=== PATIENT | female | born 1970 | race Caucasian/White ===

== ENCOUNTER 2023-09-02 08:48 | Outpatient (CLI) | payer OTHER, SELFPAY ==
--- NOTE | ~2023-09-02 | CT_ITS ---
EXAMINATION: CT orbit BI wo con DATE: 09/02/2023 09:20 INDICATION: Orbital myositis. Right eye pain. TECHNIQUE: Computed tomography (CT) of the orbits was performed without intravenous contrast. Automat ed exposure control and iterative reconstruction technique were employed. The dose-length product was 196.21 mGy-cm. COMPARISON: Head CT 05/18/2019 FINDINGS: The ocular globes are normal. The optic nerves are normal. The extraocular muscles are norm al. There is no abnormal mass. There is mild mucosal thickening in the paranasal sinuses. The mastoid air cells are normal. There is cerumen in the external auditory canals. IMPRESSION: 1. Normal orbits. Reviewed, dictated and finalized at location A. IMPRESSION: 1. Normal orbits.
== END 2023-09-02 08:49 | disposition home or self-care (01) ==
PROVIDERS: PCP Family Medicine Adolescent Medicine; Visit Provider Ophthalmology
DX: H05.123 Orbital myositis, bilateral (principal)
CPT/HCPCS: 70480

== ENCOUNTER 2024-02-29 10:21 | Outpatient (CLI) | payer OTHER, SELFPAY ==
--- NOTE | 2024-02-29 11:00 | NEURO_ITS ---
Impression: # Complains of numbness of right hand, fingers, wrist and forearm. Not diabetic. # No Carpal Tunnel Syndrome. # No ulnar neuropathy. # Normal needle/EMG exam. Nerve Conduction Studies Anti Sensory Summary Table Stim Site NR Peak (ms) P-T Amp (?V) Site1 Site2 Delta-P (ms) Dist (cm) Adalid (m/s) Right Median Anti Sensory (2-3nd Digit) Wrist 2.6 74.7 Wrist 2-3nd Digit 2.6 14.0 54 Wrist 2.4 66.4 Wrist 2-3nd Digit 2.6 14.0 54 Right Radial Anti Sensory (Base 1st Digit) Wrist 2.2 25.3 Wrist Base 1st Digit 2.2 0.0 Right Ulnar Anti Sensory (5th Digit) Wrist 2.2 57.3 Wrist 5th Digit 2.2 14.0 64 Motor Summary Table Stim Site NR Onset (ms) O-P Amp (mV) Site1 Site2 Delta-0 (ms) Dist (cm) Adalid (m/s) Right Median Motor (Abd Poll Brev) Wrist 2.3 9.9 Elbow Wrist 4.6 27.0 59 Elbow 6.9 9.0 Right Ulnar Motor (Abd Dig Minimi) Wrist 2.0 7.9 A Elbow Wrist 4.7 27.0 57 A Elbow 6.7 6.8 F Wave Studies NR F-Lat (ms) L-R F-Lat (ms) Right Median (Mrkrs) (Abd Poll Brev) 25.35 Right Ulnar (Mrkrs) (Abd Dig Min) 25.43 EMG Side Muscle Nerve Root Ins Act Fibs Amp Dur Recrt Comment Right 1stDorInt Ulnar C8-T1 Nml Nml Nml Nml Nml Right Ext Indicis Radial (Post Int) C7-8 Nml Nml Nml Nml Nml Right Ext Digitorum Radial (Post Int) C7-8 Nml Nml Nml Nml Nml Right BrachioRad Radial C5-6 Nml Nml Nml Nml Nml Right PronatorTeres Median C6-7 Nml Nml Nml Nml Nml Right Abd Poll Brev Median C8-T1 Nml Nml Nml Nml Nml Right ABD Dig Min Ulnar C8-T1 Nml Nml Nml Nml Nml Right Biceps Musculocut C5-6 Nml Nml Nml Nml Nml Right Triceps Radial C6-7-8 Nml Nml Nml Nml Nml Right Deltoid Axillary C5-6 Nml Nml Nml Nml Nml MTDD
== END 2024-02-29 10:22 | disposition home or self-care (01) ==
PROVIDERS: PCP Family Medicine Adolescent Medicine; Visit Provider Family Medicine Adolescent Medicine
DX: R29.898 Other symptoms and signs involving the musculoskeletal system (principal)
CPT/HCPCS: 95886; 95909

== ENCOUNTER 2025-02-07 15:46 | Outpatient (CLI) | payer OTHER, SELFPAY ==
--- NOTE | ~2025-02-07 | XR_ITS ---
XR foot RT min 3V Ordering provider: Eduardo Joyce, DPM History: . PAIN IN R FOOT . Comparison: October 18, 2017 FINDINGS: BONES: No acute fracture or dislocation. Postoperative changes in the distal first metatarsal bone. JOINT SPACES: Normal. No tarsal coalition. SOFT TISSUES: Normal. IMPRESSION: No acute osseous abnormality of the right foot. Reviewed, dictated and finalized at location A.
--- OUTSIDE RECORDS SUMMARY | 2025-02-07 17:07 | XMS_ITS | Data Portability ---
Author Organization [facility] Affle [facility], Main Office Address [address] [place] [address] Care Team Providers Care Patient Navigator Name Role Phone KEERTHI BURK Primary Care Provider KEERTHI BURK Referring Provider Assessment Encounter Date Assessment Date Assessment LastModified by Organization Details LastModified Time 08/31/2024 08/31/2024 This note is dictated and transcribed by [employer]. Institutional Aide variances may occur. Despite proofreading, typographical errors may occur. Occasional wrong-word or 'hrbje-m-tgsl' substitutions may have occurred due to the inherent limitations of voice recording. Read the chart carefully and recognize, using context, where substitutions have occurred. Not available 08/31/2024 10:47:13 12/14/2024 12/14/2024 This note is dictated and transcribed by [employer]. Institutional Aide variances may occur. Despite proofreading, typographical errors may occur. Occasional wrong-word or 'qadgd-z-skxj' substitutions may have occurred due to the inherent limitations of voice recording. Read the chart carefully and recognize, using context, where substitutions have occurred. Not available 12/14/2024 17:19:11 01/08/2025 01/08/2025 This note is dictated and transcribed by [employer]. Institutional Aide variances may occur. Despite proofreading, typographical errors may occur. Occasional wrong-word or 'acmoq-g-jzda' substitutions may have occurred due to the inherent limitations of voice recording. Read the chart carefully and recognize, using context, where substitutions have occurred. Not available 01/08/2025 16:27:41 01/18/2025 01/18/2025 This note is dictated and transcribed by [employer]. Institutional Aide variances may occur. Despite proofreading, typographical errors may occur. Occasional wrong-word or 'wyhyc-w-cggb' substitutions may have occurred due to the inherent limitations of voice recording. Read the chart carefully and recognize, using context, where substitutions have occurred. [email or web address] Not available 01/18/2025 17:15:18 02/01/2025 02/01/2025 This note is dictated and transcribed by [employer]. Institutional Aide variances may occur. Despite proofreading, typographical errors may occur. Occasional wrong-word or 'pbdsn-x-ipou' substitutions may have occurred due to the inherent limitations of voice recording. Read the chart carefully and recognize, using context, where substitutions have occurred. [email or web address] Not available 02/01/2025 18:09:00 Plan of Treatment Reminders Order Date Submit Date Provider Last Modified By Organization Details Last Modified Time Details Appointments Post-Op 15 2024 04:00P Jazmyn Joyce DPM Not available Not available Not available Lab CBC 2024 025 [facility] (Lab), [address] [place], [address], 12/18/2024 11:15:36 CMP, serum or plasma 2024 025 [facility] (Lab), [address] [place], [address], 12/18/2024 11:24:25 PT/PTT, plasma 2024 025 [facility] (Lab), [address] [place], [address], 12/21/2024 08:36:05 Referral None recorded. Procedures None recorded. Surgeries None recorded. Imaging XR, foot, 3 or more view 2024 025 [email or web address] [facility] Podiatry [place], [facility], [place], [address], 02/01/2025 18:09:52 XR, foot, 3 or more view 2024 025 [email or web address] [facility] [place]jo, [address], [place], [address], 01/18/2025 17:18:05 XR, foot, 3 or more view 2024 025 [email or web address] [facility] [place]jo, [address], [place], [address], 12/14/2024 17:24:20 XR, chest, 2 view [facility]25 [facility] [address] [place], [address], 12/18/2024 11:23:35 US, duplex, arterial, lower extremity , complete 2023 024 [facility] (Outpatient Orders), [address] [place], [address], 01/04/2025 08:49:58 Medication Orders None recorded. Patient TargetsNo targets recorded. Patient Instructions Encounter Date Encounter Id Patient Instructions Last Modified By Organization Details Last Modified Time 08/31/2024 [id number] (CECILIO) ankle brachial index* Not available 10/30/2024 10:19:22 12/14/2024 [id number] rhythm strip, EKG* Not available 12/21/2024 08:35:36 Reason for Referral None Reported. Results Created Date Observation Date Name Description Value Unit Range Abnormal Flag Note LastModifiedBy Organization Detail LastModifiedTime 12/18/1912/18/2024 CBC W/O DIFFE MOE AL white blood cells 7.9 x10'3 /uL 4.2-10 .8 Not Available [facility] (Lab) [address] [place], [address], 12/18/2024 11:15:36 12/18/19 25 12/18/2024 CBC W/O DIFFE RENTI AL red blood cells 4.53 x10'6 /uL 3.80-5 .20 Not Available [facility] (Lab) [address] [place], [address], 12/18/2024 11:15:36 12/18/19 25 12/18/2024 CBC W/O DIFFE RENTI AL hemoglobin 14.0 g/dL 12.0-1 5.6 Not Available [facility] (Lab) [address] [place], [address], 12/18/2024 11:15:36 12/18/19 25 12/18/2024 CBC W/O DIFFE RENTI AL hematocrit 41.6 % 35.7-4 5.7 Not Available [facility] (Lab) [address] [place], [address], 12/18/2024 11:15:36 12/18/19 25 12/18/2024 CBC W/O DIFFE RENTI AL mean red cell volume 91.8 fL 82.0-9 9.0 Not Available [facility] (Lab) [address] [facility] [place], [address], 12/18/2024 11:15:36 12/18/19 25 12/18/2024 CBC W/O DIFFE RENTI AL mean red cell hemoglobin 30.9 pg 27.0-3 3.0 Not Available [facility] (Lab) [address] [place], [address], 12/18/2024 11:15:36 12/18/19 25 12/18/2024 CBC W/O DIFFE RENTI AL mean RBC HGB concentratio n 33.7 g/dL 31.0-3 6.0 Not Available [facility] (Lab) [address] [place], [address], 12/18/2024 11:15:36 12/18/19 25 12/18/2024 CBC W/O DIFFE RENTI AL red cell distribution width 12.9 % 11.8-1 5.5 Not Available [facility] (Lab) [address] [place], [address], 12/18/2024 11:15:36 12/18/19 25 12/18/2024 CBC W/O DIFFE RENTI AL platelets 255 x10'3 /uL 150-40 0 Not Available [facility] (Lab) [address] [place], [address], 12/18/2024 11:15:36 12/18/19 25 12/18/2024 CBC W/O DIFFE RENTI AL mean platelet volume 8.3 fL 9.0-12 .4 low Not Available [facility] (Lab) [address] [place], [address], 12/18/2024 11:15:36 12/18/19 25 12/18/2024 PROTI ME W/INR protime 10.3 secon ds 9.7-12 .2 Not Available [facility] (Lab) [address] [place], [address], 12/18/2024 11:22:49 12/18/19 25 12/18/2024 PROTI ME W/INR INR 0.9 INR INDIC ATION S 2.0 - 3.0 PROPH YLAXI S: VENOU S THROM BOSIS (HIGH RISK SURGE RY) AND SYSTE EDVIN EMBOL ISM (TISS UE HEART VALVE S, AMI VALVU LAR HEART DISEA SE AND ATRIA L FIBRI LLATI ON). TREAT MENT: VENOU S THROM BOSIS AND PULMO NARY EMBOL ISM BILEA FLET MECHA NICAL VALVE S IN AORTI C POSIT ION. 2.5 - 3.5 MECHA NICAL PROST HETIC HEART VALVE S (TILT ING DISK VALVE S AND BILEA FLET MECHA NICAL VALVE S IN ERIC L POSIT ION). PREVE NTION OF RECUR RENT MYOCA RDIAL INFAR CTION . ANTIP HOSPH OLIPI D SYNDR OME. Not Available [facility] (Lab) [address] [place], [address], 12/18/2024 11:22:49 12/18/19 25 12/18/2024 APTT APTT 26.7 secon ds 22.7-3 0.2 Not Available [facility] (Lab) [address] [facility] [place], [address], 12/18/2024 11:22:53 12/18/19 25 12/18/2024 COMPR EHENS ISA METAB OLIC PANEL sodium 138 mmol/ L 137-14 5 Not Available [facility] (Lab) [address] [place], [address], 12/18/2024 11:24:25 12/18/19 25 12/18/2024 COMPR EHENS ISA METAB OLIC PANEL potassium 4.3 mmol/ L 3.5-5. 1 Not Available [facility] (Lab) [address] [place], [address], 12/18/2024 11:24:25 12/18/19 25 12/18/2024 COMPR EHENS ISA METAB OLIC PANEL chloride 105 mmol/ L 98-107 Not Available [facility] (Lab) [address] [place], [address], 12/18/2024 11:24:25 12/18/19 25 12/18/2024 COMPR EHENS ISA METAB OLIC PANEL carbon dioxide 29 mmol/ L 22-30 Not Available [facility] (Lab) [address] [place], [address], 12/18/2024 11:24:25 12/18/19 25 12/18/2024 COMPR EHENS ISA METAB OLIC PANEL anion gap 8.3 mmol/ L 14-22 low Not Available [facility] (Lab) [address] [place], [address], 12/18/2024 11:24:25 12/18/19 25 12/18/2024 COMPR EHENS ISA METAB OLIC PANEL glucose 101 mg/dL 70-99 high Not Available [facility] (Lab) [address] [place], [address], 12/18/2024 11:24:25 12/18/19 25 12/18/2024 COMPR EHENS ISA METAB OLIC PANEL BUN 14 mg/dL 8-19 Not Available [facility] (Lab) [address] [place], [address], 12/18/2024 11:24:25 12/18/19 25 12/18/2024 COMPR EHENS ISA METAB OLIC PANEL creatinine 0.58 mg/dL 0.66-1 .25 low Not Available [facility] (Lab) [address] [place], [address], 12/18/2024 11:24:25 12/18/19 25 12/18/2024 COMPR EHENS ISA METAB OLIC PANEL GFR >60 Refer ence Range : Pyrites ge GFR Healt hy Adult : >60 mL/mi n/1.7 3 m2 Chron ic Kidne y Disea se: 15-60 mL/mi n/1.7 3 m2 Kidne y Failu re: <15/m L/min /1.73 m2 www.n iddk. nih.g ov The MDRD study equat ion has not been valid ated in child lupis <18 years of age; pregn ant women ; the elder ly >85 years of age; or in some racia l or ethni c subgr oups, such as Hisdc nics. Outsi de the valid ated chen eters , estim ated GFR is less accur ate, requi ring clini flavia judgm ent on a case- by-ca se basis . Clini flavia inter preta tion for other races and ages must be made by the clini erin. The MDRD study equat ion has not been valid ated for the evalu ation of serum creat inine relat ed to nutri cecelia l statu s or medic ation usage . For perso ns <18 years of age, a pedia tric GFR calcu latsami is avail able on the [facility] websi te: https ://li garza.bernard vazquez.o citlaly/pr ofess ional s/kdo qi/gf r_cal culat or Not Available [facility] (Lab) [address] [place], [address], 12/18/2024 11:24:25 12/18/19 25 12/18/2024 COMPR EHENS ISA METAB OLIC PANEL alkaline phosphatase 71 U/L 38-126 Not Available [facility] (Lab) [address] [place], [address], 12/18/2024 11:24:25 12/18/19 25 12/18/2024 COMPR EHENS ISA METAB OLIC PANEL alanine aminotransfe rase 28 U/L 0-35 Not Available [facility] (Lab) [address] [place], [address], 12/18/2024 11:24:25 12/18/19 25 12/18/2024 COMPR EHENS ISA METAB OLIC PANEL aspartate aminotransfe rase 28 U/L 15-37 Not Available [facility] (Lab) [address] [place], [address], 12/18/2024 11:24:25 12/18/19 25 12/18/2024 COMPR EHENS ISA METAB OLIC PANEL bilirubin, total 0.50 mg/dL 0.20-1 .30 Not Available [facility] (Lab) [address] [place], [address], 12/18/2024 11:24:25 12/18/19 25 12/18/2024 COMPR EHENS ISA METAB OLIC PANEL calcium 9.5 mg/dL 8.4-10 .2 Not Available [facility] (Lab) [address] [place], [address], 12/18/2024 11:24:25 12/18/19 25 12/18/2024 COMPR EHENS ISA METAB OLIC PANEL total protein 6.9 g/dL 6.3-8. 2 Not Available [facility] (Lab) [address] [place], [address], 12/18/2024 11:24:25 12/18/19 25 12/18/2024 COMPR EHENS ISA METAB OLIC PANEL albumin 4.3 g/dL 3.4-5. 0 Not Available [facility] (Lab) [address] [place], [address], 12/18/2024 11:24:25 12/18/19 25 12/18/2024 COMPR EHENS ISA METAB OLIC PANEL globulin 2.6 g/dL 2.6-4. 2 Not Available [facility] (Lab) [address] [place], [address], 12/18/2024 11:24:25 12/18/19 25 12/18/2024 COMPR EHENS ISA METAB OLIC PANEL A/G ratio 1.7 ratio 1.0-2. 0 Not Available [facility] (Lab) [address] [place], [address], 12/18/2024 11:24:25 08/03/20 24 XR, foot, 3 or more view No observ ation record ed. [email or web address] [facility] [place] [address], [place], [address], 08/03/2024 10:31:53 12/14/19 25 XR, foot, 3 or more view No observ ation record ed. [email or web address] [facility] [place] [address], [place], [address], 12/14/2024 17:23:25 12/18/19 25 12/18/2024 XR, chest , 2 view [facility] [address], [place] [address] Patiadrianna t Name: AHMET SCHMITZ Access ion #: [id number] Sex: F : 1969 8 Locati on: [facility] Attend ing Physic alla: EDUARDO ELIZABETH Orderi ng Physic alla: EDUARDO ELIZABETH Exam Date: 025 8:57 AM Exam Name: XR CHEST 2V Admitt ing Diagno sis(es ): RADIOL OGY REPORT - FINAL EXAM: XR CHEST 2V HISTOR Y: Pre-lemus rgery evalua tion 54-yea r-old female smoker with preope rative chest x-ray, histor y of asthma . COMPAR YARA: None availa ble. TECHNI QUE: 2 views of the chest were perfor med. FINDIN GS: No pneumo thorax , pleura l effusi ons, pulmon vicente edema, or consol idativ e infilt rates. The heart is not enlarg ed. There is mild thorac ic degene rative disc diseas e. No fractu res are identi fied about the bony thorax . There is lower thorac ic dextro scolio sis. The gabo l heads are high-r iding sugges tive of signif icant rotato r cuff tendin opathy bilate rally. Surgic al clips in the Page 1 of 2 [facility] Patiadrianna t Name: AHMET SCHMITZ Access ion #: [id number] Sex: F : 1969 8 Exam Date: 8:57 AM Exam Name: XR CHEST 2V Admitt ing Diagno sis(es ): upper abdome n sugges tive of prior cholec ystect bry. IMPRES MANUEL: No acute intrat horaci c proces s. Create d and electr onical ly signed by: Amaury jaimes MD Signed Date: 10:21 AM (CT) Dictat ed by: Amaury jaimes MD DD: 10:21 AM (CT) DT: 025 10:21 AM (CT) Page 2 of 2 [email or web address] [facility] (Imaging) [address] [place], [address], 12/18/2024 11:48:17 12/18/19 25 12/18/2024 XR, chest , 2 view No observ ation record ed. [email or web address] [facility] (Outpatient Orders) [address] [place], [address], 12/18/2024 11:47:58 12/19/19 25 09/20/2024 US, duple x, arter ial, lower extre mity No observ ation record ed. Not Available 2024 09:42:43 01/18/20 25 XR, foot, 3 or more view No observ ation record ed. [email or web address] [facility] [place] [address], [place], [address], 01/18/2025 17:16:41 02/02/20 25 XR, foot, 3 or more view No observ ation record ed. [email or web address] [facility] [place] [address], [place], [address], 02/01/2025 18:09:51 Result Notes None recorded. Problems Name Problem SNOMED Code Status Onset Date Resolution Date Notes Provider Name and Address Organization Details Recorded Time Plantar fasciitis of right foot 6341530668989 9101 Active 2017 Not Available [employer] 3 19:31:51 Pain in right foot 1453424941236 07 Active 2023 Eduardo Joyce DPM [address] [facility], [place], [address] , [facility] [employer] 4 10:26:47 Bunion 737364333 Active 2023 Eduardo Joyce DPM [address] [facility] [address] [facility], [place], [address] , [facility] 4 10:26:50 Marijuana user 918097745 Active 2023 Eduardo Joyce DPM [address], [place], [address] , [facility] 4 10:27:21 Bipolar disorder 50611363 Active 2023 Eduardo Joyce DPM [address], [place], [address] , [facility] 4 10:27:34 Asthma 554158627 Active 2023 Martha summers, [facility] 4 10:36:20 Disorder of eye 144486368 Active 2023 Martha summers, [facility] 4 10:36:29 Hyperchole sterolemia 55362418 Active 2023 Martha summers, [facility] 4 10:36:39 Migraine 30881724 Active 2023 Martha summers, [facility] 4 10:36:49 Neuropathy 012426773 Active 2023 Eduardo Joyce DPM [address], [address], [place], [address] , [facility] 4 10:47:18 Peripheral vascular disease 309639263 Active 2023 Eduardo Joyce DPM [address], [address], [place], [address] , [facility] 4 10:48:10 Pre-surger y evaluation Active 2024 Eduardo Joyce DPM [address], [address], [place], [address] , [facility] 5 17:24:32 Postoperat isa care Active 2024 Eduardo Joyce DPM [address], [place], [address] , [facility] [employer] [facility] [employer] 16:28:18 Problem Notes None recorded. Procedures Surgical History Date Name Laterality Status Provider Name and Address Organization Details Recorded Time Suture Removal completed Eduardo Joyce DPM [address], [place], [address], [facility] [employer] [facility] [employer] 02/05/2025 16:21:01 Hysterectomy completed Radha Matthews MA [facility] [employer] 08/03/2024 09:52:58 Imaging Results Imaging Date Name Status LastModified by Organiz ation Details LastModified Time 08/03/2024 XR, foot, 3 or more view completed [email or web address] [facility] [place] [address], [place], [address], 08/03/2024 10:31:53 12/14/2024 XR, foot, 3 or more view [email or web address] [place] [address], [place], [address], 12/14/2024 17:23:25 12/18/2024 XR, chest, 2 view completed [email or web address] [facility] (Imaging) [address] [place], [address], 12/18/2024 11:48:17 12/18/2024 XR, chest, 2 view completed [email or web address] [facility] (Outpatient Orders) [address] [place], [address], 12/18/2024 11:47:58 09/20/2024 US, duplex, arterial, lower extremity completed Information not available 12/19/2024 09:42:43 01/18/2025 XR, foot, 3 or more view [email or web address] [place] [address], [place], [address], 01/18/2025 17:16:41 02/01/2025 XR, foot, 3 or more view completed [email or web address] [facility] [place] [address], [place], [address], 02/01/2025 18:09:51 Procedure Notes None recorded. Medical Equipment None Reported. Allergies Allergen ID Allergen Name Allergen Category Reaction Reaction Severity Criticality Documentation Date Start Date Code Code System Note Provider Name and Address Organization Details Recorded Time 61030 nut - unspecifi ed food Not available Not available Not available 08/03/2024 87457 UNK GALLITO Felipe [facility] [employer] 10:30:39 Medications Name Sig Start Date Stop Date Status Note LastModified by Organization Details LastModified Time lamotrigine 150 mg tablet 08/03 completed Not Available Not Available Not Available prednisone 10 mg tablet TAKE 5 TABLETS BY MOUTH DAILY 08/03 completed Not Available Not Available Not Available doxycycline hyclate 100 mg capsule TAKE 1 CAPSULE BY MOUTH TWICE DAILY 08/03 completed Not Available Not Available Not Available lamotrigine 200 mg tablet TAKE 1 TABLET BY MOUTH TWICE DAILY WITH MEALS active Not Available Not Available No t Available trazodone 50 mg tablet TAKE 1 TABLET BY MOUTH AT BEDTIME active Not Available Not Available No t Available azithromyci n 250 mg tablet TK 2 TS PO TODAY THEN TK 1 T PO QD FOR 4 DAYS 03/17 completed Not Available Not Available Not Available ibuprofen 800 mg tablet TK 1 T PO TID 08/03 completed Not Available Not Available Not Available benzonatate 200 mg capsule TK 1 C PO TID PRF COUGH 08/03 completed Not Available Not Available Not Available hydrocodone 5 mg-acetamin ophen 325 mg tablet TAKE 1 TABLET BY MOUTH FOUR TIMES DAILY NEEDED FOR PAIN active Not Available Not Available No t Available ondansetron HCl 4 mg tablet TAKE 1 TABLET BY MOUTH FOUR TIMES DAILY NEEDED FOR NAUSEA OR VOMITING 08/03 completed Not Available Not Available Not Available prednisone 20 mg tablet 01/08 completed Not Available Not Available Not Available risperidone 0.25 mg tablet 08/03 completed Not Available Not Available Not Available prochlorper azine maleate 10 mg tablet TAKE 1 TABLET BY MOUTH FOUR TIMES DAILY NEEDED FOR NAUSEA OR VOMITING 08/03 completed Not Available Not Available Not Available ciprofloxac in 500 mg tablet 12/30 completed Not Available Not Available Not Available tramadol 50 mg tablet TAKE 2 TABLETS BY MOUTH FOUR TIMES DAILY NEEDED FOR PAIN 08/03 completed Not Available Not Available Not Available risperidone 2 mg tablet TAKE 1 TABLET BY MOUTH EVERY DAY AT BEDTIME 08/03 completed Not Available Not Available Not Available citalopram 20 mg tablet TAKE 1 TABLET BY MOUTH EVERY DAY active Not Available Not Available No t Available trazodone 100 mg tablet TAKE 1 TABLET BY MOUTH EVERY DAY AT BEDTIME 08/03 completed Not Available Not Available Not Available cephalexin 500 mg capsule TAKE 1 CAPSULE BY MOUTH EVERY 8 HOURS FOR 7 DAYS 08/03 completed Not Available Not Available Not Available ranitidine 150 mg tablet TK 1 T PO BID 08/03 completed Not Available Not Available Not Available promethazin e 25 mg tablet TAKE 1 TABLET BY MOUTH FOUR TIMES DAILY NEEDED FOR NAUSEA OR VOMITING 08/03 completed Not Available Not Available Not Available polymyxin B sulfate 10,000 unit-trimet hoprim 1 mg/mL eye drops INSTILL 1 DROP IN RIGHT EYE FOUR TIMES DAILY WHILE AWAKE FOR 5 DAYS. DO NOT EXCEED 6 DOSES IN 24 HOURS 01/08 completed Not Available Not Available Not Available omeprazole 20 mg capsule,del ayed release TK 1 C PO QD 08/03 completed Not Available Not Available Not Available estradiol 2 mg tablet TAKE 1 TABLET BY MOUTH EVERY DAY active Not Available Not Available No t Available diclofenac sodium 75 mg tablet,erick yed release TK 1 T PO BID 08/03 completed Not Available Not Available Not Available dorzolamide 22.3 mg-timolol 6.8 mg/mL eye drops INSTILL 1 DROP INTO RIGHT EYE TWICE DAILY 08/03 completed Not Available Not Available Not Available lorazepam 1 mg tablet TK 1 T PO BID PRN 08/03 completed Not Available Not Available Not Available albuterol sulfate HFA 90 mcg/actuati on aerosol inhaler INHALE 2 PUFFS BY MOUTH EVERY 4 HOURS NEEDED FOR SHORTNESS OF BREATH OR WHEEZING active Not Available Not Available No t Available timolol maleate 0.5 % eye drops INSTILL 1 DROP BOTH EYES TWICE DAILY 08/03 completed Not Available Not Available Not Available Percocet 5 mg-325 mg tablet TAKE 1 TAB PO Q 8 HRS PRN PAIN active Not Available Not Available No t Available topiramate 100 mg tablet TAKE 1 TABLET BY MOUTH TWICE DAILY active Not Available Not Available No t Available risperidone 1 mg tablet TAKE 1 TABLET BY MOUTH EVERY DAY AT BEDTIME active Not Available Not Available No t Available lamotrigine 100 mg tablet TK 1 T PO BID B MEALS 03/17 completed Not Available Not Available Not Available risperidone 0.5 mg tablet TK 1 T PO TID HS UTD 03/17 completed Not Available Not Available Not Available amoxicillin 875 mg-potassiu m clavulanate 125 mg tablet TAKE 1 TABLET BY MOUTH TWICE DAILY 08/03 completed Not Available Not Available Not Available dorzolamide 2 % eye drops INSTILL 1 DROP INTO BOTH EYES TWICE DAILY 08/03 completed Not Available Not Available Not Available hydroxyzine pamoate 25 mg capsule TK 1 C PO BID WC 08/03 completed Not Available Not Available Not Available fenofibrate 160 mg tablet TAKE 1 TABLET BY MOUTH DAILY 08/03 completed Not Available Not Available Not Available Vitals Date Recorded Body height Body mass index (BMI) Body weight Heart rate Respiratory rate Oxygen saturation Oxygen saturation in Arterial blood by Pulse oximetry Systolic blood pressure Diastolic blood pressure Provider Name and Address Organization Details Last Updated DateTime 4 154.94 cm 24.6 kg/m2 60973.0 1 g 80 /min 14 /min 99 % 99 % 151 mm[Hg] 384 mm[Hg] Mary Rogers MD [employer] 4 09:56:50 Date Recorded Body height Body mass index (BMI) Body weight Heart rate Respiratory rate Oxygen saturation Oxygen saturation in Arterial blood by Pulse oximetry Systolic blood pressure Diastolic blood pressure Provider Name and Address Organization Details Last Updated DateTime 5 154.94 cm 24.6 kg/m2 12438.0 1 g 87 /min 14 /min 98 % 98 % 146 mm[Hg] 66 mm[Hg] Mary Rogers MD [employer] 5 16:53:38 Date Recorded Body height Body mass index (BMI) Body weight Heart rate Respiratory rate Oxygen saturation Oxygen saturation in Arterial blood by Pulse oximetry Systolic blood pressure Diastolic blood pressure Provider Name and Address Organization Details Last Updated DateTime 5 154.94 cm 24.6 kg/m2 65316.0 1 g 107 /min 14 /min 98 % 98 % 162 mm[Hg] 89 mm[Hg] Mary Ken [employer] [facility] 5 16:03:19 Date Recorded Body height Body mass index (BMI) Body weight Heart rate Respiratory rate Oxygen saturation Oxygen saturation in Arterial blood by Pulse oximetry Systolic blood pressure Diastolic blood pressure Provider Name and Address Organization Details Last Updated DateTime 5 154.94 cm 24.6 kg/m2 51091.0 1 g 90 /min 14 /min 98 % 98 % 139 mm[Hg] 85 mm[Hg] [facility] [employer] [facility] [employer] 5 16:53:58 Date Recorded Body height Body mass index (BMI) Body weight Heart rate Respiratory rate Oxygen saturation Oxygen saturation in Arterial blood by Pulse oximetry Systolic blood pressure Diastolic blood pressure Provider Name and Address Organization Details Last Updated DateTime 5 154.94 cm 24.6 kg/m2 51867.0 1 g 106 /min 14 /min 99 % 99 % 157 mm[Hg] 85 mm[Hg] [facility] [employer] [facility] [employer] 5 16:58:06 Social History Question Answer Notes LastModified by Organizat ion Details LastModified Time Tobacco Smoking Status Former Smoker Martha summers [place] [employer] [facility] 08/03/2024 10:38:24 What Is Your Level Of Alcohol Consumption? Occasional Information not available 08/03/2024 What Is Your Level Of Caffeine Consumption? Moderate Information not available 08/03/2024 In The 14 Days Before Symptom Onset, Have You Had Close Contact With A Laboratory-confir med COVID-19 While That Case Was Ill? No Information not available 08/03/2024 In The 14 Days Before Symptom Onset, Have You Had Close Contact With A Person Who Is Under Investigation For COVID-19 While That Person Was Ill? No Information not available 08/03/2024 Are You Currently Employed? No Information not available 08/03/2024 What Type Of Diet Are You Following? REGULAR [place] Information not available 08/03/2024 When Did You Quit Smoking? 1-5yearssincel myrna Information not available 08/03/2024 Are There Any Guns Present In Your Home? [place] [address] Information not available 08/03/2024 What Is Your Relationship Status? [place] Information not available 08/03/2024 Do You Have Smoke And Carbon Monoxide Detectors In Your Home? Yes [place] [address] Information not available 08/03/2024 Are You Passively Exposed To Smoke? No [place] [address] Information no t available 08/03/2024 Do You Use Any Illicit Or Recreational Drugs? No [place] [address] Information not available 08/03/2024 Do You Use Sunscreen Routinely? Yes [place] [address] Information not available 08/03/2024 Have You Recently Traveled Abroad? No [place] [address] Information not available 08/03/2024 Do You Have Any Dietary Restrictions? No [place] [address] Information not available 08/03/2024 Sex: Unknown Functional Status Question Answer Note LastModified by Organizat ion Details LastModified Time What is your exercise level? Occasional [place] Information not available 08/03/2024 Mental Status None recorded. Family History Relationship Description Onset Age of this Age Resolved Age Notes LastModified by Organization Details LastModified Time Father Oralia keith [place] [address] Not available 2023 09:51:05 Mother Diabetes mellitus Not available 2023 10:37:07 Mother Cerebrovascu lar accident Not available 10/2024 10:38:06 Medical History Condition Response ALLERGIES/HAYFEVER Y HEADACHES/MIGRAINES Y FOOT PROBLEM Y HIGH CHOLESTEROL / HYPERLIPIDEMIA Y Gynecological HistoryNo gynecological history recorded. Obstetrics History GPAL:G 0 P 0 0 0 0 Past Encounters Encounter ID Performer Location Encounter Start Date Encounter Closed Date Diagnosis/Indication Diagnosis SNOMED-CT Code Diagnosis ICD10 Code Diagnosis Note [id number] Eduardo Joyce DPM [facility] [place] [address] [place] [address] 08/03/2024 09:43:56 08/21/2024 11:35:01 Pain in right foot 8979749323 50696 M79.671 as below Bunion 514402886 M21.61 9 discuss treatment options in detailx- [facility] ommend wide shoe geardiscus sed offloading optionsdis cuss surgical optionsfol low-up in 2 months follow-up conservati ve measures Marijuana user 644872538 F12.90 for glaucoma Bipolar disorder 2477314 4 F31.9 continue PCP recommenda tions [id number] Eduardo Joyce DPM [facility] [place] [address] [place] [address] 08/31/2024 09:53:44 08/31/2024 11:32:48 Bunion [id number] M21.619 discuss treatment options in detailx- ys reviewed [facility] ommend wide shoe gear and [employer] [facility] orthoticsd iscussed offloading optionsdis cuss surgical optionsfol low-up in in November for possible surgical interventi on Neuropathy 042155589 G62 .9 follow-up with PCP recommend neurology consult Peripheral vascular disease 819017345 I73.9 [id number] Eduardo Joyce DPM [facility] [place] [address] [place] [address] 12/14/2024 16:49:03 12/20/2024 16:11:10 Pre-surgery evaluation 214098382 Z01.818 general anesthesia -- right bunion correction Bunion 454119435 M21.61 9 discuss treatment options in detailx-[facility] distal Chevron osteotomy with Robbie osteotomyo btain surgical clearance- chest x-ray, labs, and EKG orderedfol low-up post op Peripheral vascular disease 610692897 I73.9 obtain vascular testing prior to surgeryper formed on 09/20/24 [id number] Eduardo Joyce DPM [facility] [place] [address] [place] [address] 01/08/2025 15:54:31 01/09/2025 13:11:01 Postoperative care [id number] Z48.89 surgery date 01/05/2025 dressings changedmin imal weight-roberto carlos ring to the heel postop shoerice therapykee p dressings clean and drymonitor for infection at present seek medical attention immediatel yFollow-up in 1 week for dressing change [id number] Eduardo Joyce DPM [facility] [place] [address] [place] [address] 01/18/2025 16:47:37 01/19/2025 14:11:16 Postoperative care [id number] Z48.89 surgery date 01/05/2025 dressings changedmin imal weight-roberto carlos ring to the heel postop shoerice therapykee p dressings clean and drymonitor for infection at present seek medical attention immediatel yFollow-up in 1 week for suture removal [id number] Eduardo Joyce DPM [facility] [place] [address] [place] [address] 02/01/2025 16:38:58 02/06/2025 09:51:26 Postoperative care 978461104 Z48.89 surgery date 01/05/2025 , status post 3 weekssutur es removeddre ssings changedmin imal weight-roberto carlos ring to the heel postop shoerice therapykee p dressings clean and drymonitor for infection at present seek medical attention immediatel yFollow-up 2 weeks for x-rays Health Concerns Section Related Observation LastModified by Organization Detai ls LastModified Time None Recorded Concern Status LastModified by Organization Details LastModified Time None Recorded Advance Directives Directive None Recorded Payers Encounter Date Sequence Insurance Name Policy Number Policy Rodas Covered Member ID Rodas Member ID Guarantor Name 08/31/2024 1 [facility] ON OR AFTER 05/22/21 (MEDICAID REPLACEMENT - HMO) Ahmet Hernandezsejonna [id number] Ahmet Robison Novosel 12/14/2024 1 [facility] ON OR AFTER 05/22/21 (MEDICAID REPLACEMENT - HMO) Ahmet Robison Novosejonna [id number] Ahmet Robison Novosel 01/08/2025 1 [facility] ON OR AFTER 05/22/21 (MEDICAID REPLACEMENT - HMO) Ahmet Robison Novosel [id number] Ahmet Robison Novosel 01/18/2025 1 [facility] - DOS ON OR AFTER 21 (MEDICAID REPLACEMENT - HMO) Ahmet Robison Novosel [id number] Ahmet Robison Novosel 02/01/2025 1 [facility] - DOS ON OR AFTER 21 (MEDICAID REPLACEMENT - HMO) Ahmet Robison Novosel [id number] Ahmet Robison Novol Notes Date Note Type Note Provider Name and Address Organization Details Recorded Time 08/31/2024 text/html the patient is a 54-year-old female she returns to the office for follow-up on painful bunion. Patient states she has tried conservative offloading with shoe gear but she has not obtained any kind of splints or silicone offloading devices I did recommend this as well as [id number] orthotics to help support the foot and foot function. Patient states that she will try some orthotics she states that she is having numbness and tingling the foot I did recommend that she follow-up with her primary care and seek neurology consultation for this issue. Patient denies any open wounds to the foot. patient states she also is developing cramping of the lower extremity she states she smokes marijuana. Patient denies any other complaints. Eduardo Joyce DPM [address], [facility] [address], [place], [address], MD [employer] 08/31/2024 10:49:13 12/14/2024 text/html . Patient is a 54-year-old female she returns the office for follow-up on foot pain secondary to a bunion deformity. Patient states she has tried conservative offloading and she continues have pain she denies any open wounds or injury. Patient did obtain vascular testing on 09/20 which have not been sent we will obtain these and we will obtain surgical clearance once this is obtained we will plan for surgical correction. Eduardo Joyce DPM [address], [address], [place], [address], [employer] 12/18/2024 14:15:33 01/08/2025 text/html . Patient is a 54-year-old female who returns the office for follow-up on right foot bunion surgery. Patient is status post 3 days she is doing well. Patient has some mild bruising. Patient states her pain is moderate. Patient is utilizing a knee scooter to get around. Pain patient denies any calf pain. Patient denies any fever, chills, nausea vomiting. Eduardo Joyce DPM [address], [address], [place], [address], MD [employer] 01/08/2025 16:29:16 01/18/2025 text/html . Patient is a 54-year-old female who returns for follow-up on bunion surgery she is doing well she continues have some mild pain that sometimes is moderate. Patient states the hydrocodone does not really help. Patient denies any constipation or issues with side effects. Patient denies any other complaints. Patient continues to utilize a knee scooter nonweightbearing to the right foot. Eduardo Joyce DPM [address], [address], [place], [address], MD [employer] 01/18/2025 17:18:18 02/01/2025 text/html . Patient is a 54-year-old female she returns the office for follow-up on bunion surgery she is 3 weeks out she is here for suture removal. Patient is doing well she has a well-healed incision she has minimal swelling. Patient states she still has some discomfort. Patient states she is not putting any pressure on the foot. Patient denies any other complaints. Eduardo Joyce DPM [address], [address], [place], [address], MD [employer] 02/05/2025 16:22:06 OBGyn Episode No OBEpisode recorded.
--- OUTSIDE RECORDS SUMMARY | 2025-02-07 17:07 | XMS_ITS | CONTINUITY OF CARE DOCUMENT ---
Author Name reg finney Address Unknown Organization [facility] Address [address] [place] [address] Phone [phone] Care Team Providers Care Push Connector Assembler Name Role Phone Travis West MD Unavailable Travis West MD Unavailable INSURANCE PROVIDERS Payer name Policy type / Coverage type [place] red green party [place] (2) Medicaid [id number]
--- OUTSIDE RECORDS SUMMARY | 2025-02-07 17:07 | XMS_ITS | Clinical Summary ---
Author Organization [facility] Address [facility] [place] [address] Care Team Providers Care Irrigationist Designer Name Role Phone Demar Sharif MD Primary Care Provider + Source Comments [facility],non-owned Affiliates and Associated Physician Practices is amultiple site organization consisting of ambulatory clinics and hospital sitesin [place], [place], [place] and [place]. This disclosure is being madepursuant to the Care Everywhere program and may not contain all information available regarding this patient. Last updated 18.[facility] Active Problems Problem Noted Date Diagnosed Date Radiculopathy of cervical region 08/08/2016 Radiculopathy of lumbar region 08/08/2016 Family History Medical History Relation Name Comments Cancer Brother Parkinson's Disease Brother Diabetes Mother Glaucoma Mother Relation Name Status Comments Brother Mother Social History Tobacco Use Types Packs/Day Years Used Date Smoking Tobacco: Every Day Alcohol Use Standard Drinks/Week Comments Yes 0 (1 standard drink = 0.6 oz pur e alcohol) Sex and Gender Information Value Date Recorded Sex Assigned at Not on file Gender Identity Not on file Sexual Orientation Not on file Last Filed Vital Signs Vital Sign Reading Time Taken Comments Blood Pressure 123/80 02/04/2016 9:37 AM CDT Pulse 92 02/04/2016 9:37 AM CDT Temperature 36.7 C (98 F) 02/04/2016 9:37 AM CDT Respiratory Rate 16 02/04/2016 9:37 AM CDT Oxygen Saturation - - Inhaled Oxygen Concentration - - Weight 42.6 kg (94 lb) 02/04/2016 9:37 AM CDT Height 154.9 cm (5' 1 ) 02/04/2016 9:37 AM CDT Body Mass Index 17.76 02/04/2016 9:37 AM CDT Plan of Treatment Health Maintenance Due Date Last Done Comments BINA (AGES 45-75) - COL ON CA SCREENING 1972 COLON MONITORING 1972 COLONOSCOPY - COLON CA SCREENING 1972 CT COLONOGRAPHY - COLON CA SCREENING 1972 Colorectal Cancer Screening 1972 FIT - COLON CA SCREENING 1972 FLEX SIG - COLON CA SCREENING 1972 LIPID TESTING 1972 MAMMOGRAM 1972 PAP SMEAR 1972 HIV SCREENING 1987 HEPATITIS C SCREENING 07/08/1990 DTAP/TDAP/TD VACCINES (1 - Tdap) 1991 HEPATITIS B VACCINE (1 of 3 - 19+ 3-dose series) 1991 PNEUMOCOCCAL VACCINE (1 of 2 - PCV) 1991 PNEUMOCOCCAL VACCINE 50+ (1 of 1 - PCV) 2022 ZOSTER VACCINE (1 of 2) 2022 COVID-19 VACCINE (1 - 2023-2 5 season) 2024 INFLUENZA VACCINE (#1) 2024 DEPRESSION SCREENING 11/22/2024 HIB VACCINE Aged Out No longer eligi ble based on patient's age to complete this topic HPV VACCINE Aged Out No longer eligi ble based on patient's age to complete this topic MENINGOCOCCAL (Group B) VACC INE SHARED DECISION-MAKING Aged Out No longer eligibl e based on patient's age to complete this topic MENINGOCOCCAL GROUPS A/C/Y/W VACCINE Aged Out No longer eligible b ased on patient's age to complete this topic Care Teams Irrigationist Designer Relationship Specialty Start Date End Date Demar Sharif MD [address] [place] [id number] PCP - General 10/06/11
--- OUTSIDE RECORDS SUMMARY | 2025-02-07 17:07 | XMS_ITS | Clinical Summary ---
Author Organization [facility] Address [address] [place] [address] Care Team Providers Care Ecologist Technician Name Role Phone Demar Sharif MD Primary Care Provider [phone] Allergies Active Allergy Reactions Criticality Noted Date Comments Duloxetine Hcl Eyes Water & Itch 05/23/2019 Eye pain Nuts Hives 05/23/2019 Shellfish-Derived Products Rash Low 05/23/2019 Sertraline Other (see comment) 05/23/2019 made me crazy Medications topiramate 100 MG tablet Take 100 mg by mouth 2 (two) times daily. 5 9 Active risperiDONE 0.5 MG tablet Take 0.5 mg by mouth 2 (two) times daily with meals. 2 9 Active trazodone 50 MG tablet Take 50 mg by mouth nightly at bedtime. 2 9 Active ALPRAZolam 0.25 MG tablet 1 9 Active PROAIR HFA 108 (90 Base) MCG/ACT inhaler Inhale 2 puffs into the lungs every 4 (four) hours as needed. 0 8 Active citalopram 20 MG tablet TK 1 T PO QD B MEALS 2 9 Active BANOPHEN 50 MG Cap capsule TK ONE C PO 1 HOUR PRIOR TO CONTRAST INJECTION 0 9 Active lamotrigine 150 MG tablet Take 150 mg by mouth 2 (two) times daily. 2 9 Active ibuprofen 800 MG tablet Take 800 mg by mouth 3 (three) times daily as needed. 2 9 Active ondansetron 4 MG tablet TK 1 T PO Q 6 H PRN N 0 9 Active ZIOPTAN 0.0015 % ophthalmic solution Place 1 drop into both eyes nightly at bedtime. 0 9 Active fenofibrate 160 MG tablet Take 160 mg by mouth daily. 2 9 Active estradiol 2 MG tablet Take 2 mg by mouth daily. 0 9 Active Family History Medical History Relation Comments Diabetes Mother Relation Status Comments Mother Social History Tobacco Use Types Packs/Day Years Used Date Smoking Tobacco: Former Smokeless Tobacco: Never Alcohol Use Standard Drinks/Week Comments Yes 0 (1 standard drink = 0.6 oz pur e alcohol) occasional AUDIT-C Answer Date Recorded Frequency of Alcohol Consumption Never 05/23/2019 Average Number of Drinks Not on file 019 Frequency of Binge Drinking Not on file 12/2018 Comments Unknown Sex and Gender Information Value Date Recorded Sex Assigned at Not on file Legal Sex Female 7:33 PM CDT Gender Identity Not on file Sexual Orientation Not on file Last Filed Vital Signs Vital Sign Reading Time Taken Comments Blood Pressure 121/70 05/23/2019 12:17 PM CDT Pulse 87 05/23/2019 12:17 PM CDT Temperature 36.9 C (98.5 F) 05/23/2019 11:57 AM CDT Respiratory Rate 16 05/23/2019 12:17 PM CDT Oxygen Saturation 100% 05/23/2019 12:17 PM CDT Inhaled Oxygen Concentration - - Weight 57.6 kg (127 lb) 05/23/2019 10:28 AM CDT Height 157.5 cm (5' 2 ) 05/23/2019 10:28 AM CDT Body Mass Index 23.23 05/23/2019 10:28 AM CDT Plan of Treatment Health Maintenance Due Date Last Done Comments Annual Physical 1975 Hepatitis C 1990 DTaP, Tdap and Td Vaccines ( 1 - Tdap) 1991 Hepatitis B Vaccines (1 of 3 - 19+ 3-dose series) 1991 Mammogram Screening 2012 Zoster Vaccines (1 of 2) 2022 COVID-19 Vaccine (2023-2 5 season) 2024 Influenza Adult (#1) 2024 Colorectal Cancer Screening Colonoscopy (10 Years) 05/23/2029 05/23/2019 Meningococcal B Vaccine Aged Out No l onger eligible based on patient's age to complete this topic Meningococcal Vaccine Aged Out No bear niurka eligible based on patient's age to complete this topic Pneumococcal Vaccine: Pediat rics (0 to 5 Years) and At-Risk Patients (6 to 64 Years) Aged Out No longer eligi ble based on patient's age to complete this topic RSV Immunizations Under 20 Months Aged Out No longer eligible based on patient's age to complete this topic Procedures Procedure Name Priority Date/Time Associated Diagnosis Comments COLONOSCOPY Routine 05/23/2019 10:16 AM CDT from Last 3 Months or Most Recently Relevant to Health Maintenance Insurance [employer] Care Teams Ecologist Technician Relationship Specialty Start Date End Date Demar Sharif MD [address] [place] [id number] PCP - General 06/28/14
== END 2025-02-07 15:47 | disposition home or self-care (01) ==
PROVIDERS: PCP Family Medicine Adolescent Medicine; Visit Provider Podiatrist Foot & Ankle Surgery
DX: M79.671 Pain in right foot (principal)
CPT/HCPCS: 73630